=== PATIENT | male | born 1975 | race Caucasian/White ===

== ENCOUNTER 2018-03-16 14:34 | Emergency (ER) | payer SELFPAY ==
[2018-03-16] MEDS ORDERED: Lidocaine 1% 5ml(IM or SUTURE)(PAIN CLINIC) ONE (14:44)
--- NOTE | 2018-03-16 15:08 | ED Physician Documentation ---
General Adult - HISTORIAN Historian: patient - HPI Stated Complaint: Arm Lac Chief Complaint: General Adult Onset: minutes Timing: still present Severity: mild Further Comments: yes (Pt is a 43 yo male with a small, 2.5 cm superficial laceration near his R elbow. Pt was using a brushhog when a part broke off. Tetanus is utd.) - ROS CONST: no problems EYES/ENT: none CVS/RESP: none GI/: none MS/SKIN/LYMPH: other (small R elbow laceration) - PAST HX Past History: none Other History: none Allergies/Adverse Reactions: Allergies Allergy/AdvReac Type Severity Reaction Status Date / Time acetaminophen [From Percocet] Allergy Verified 03/16/18 14:50 oxycodone [From Percocet] Allergy Verified 03/16/18 14:50 Home Medications: Ambulatory Orders Medication Instructions Recorded Lisdexamfetamine Dimesylate 1 cap PO DAILY 03/16/18 [Vyvanse] - SOCIAL HX Smoking History: non-smoker - FAMILY HX Family History: No - VITAL SIGNS Vital Signs: Vital Signs Temp Pulse Resp BP Pulse Ox 77 17 117/86 98 03/16/18 14:40 03/16/18 14:40 03/16/18 14:40 03/16/18 14:40 - REVIEWED ASSESSMENTS Nursing Assessment Reviewed: Yes Vitals Reviewed: Yes Procedures Wound Location: upper extremity (R) Wound Length: 2.5 cm Wound's Depth, Shape: superficial Wound Explored: clean Irrigated w/ Saline (ccs): 20 Betadine Prep?: No (Tom martin) Anesthesia: 1% Lidocaine Volume of Anesthetic: 3 cc Wound Debrided: minimal Wound Repaired With: sutures Suture Size/Type: 4:0, nylon Number of Sutures: 3 Layer Closure?: No Sterile Dressing Applied?: Yes Splint Applied?: No Sling Applied?: No Progress - Progress Progress: Topical abx to suture site f/u w pcp in 5-7 days for suture removal, apply topical abx bid x 5 days. ED Results Lab/Radiology - Orders Orders: ED Orders Category Date Time Status Lidocaine 1% 5ml(IM or SUTURE) [Xylocaine] Med 03/16/18 14:44 Discontinued 50 mg .ROUTE .STK-MED ONE General Adult Physical Exam - PHYSICAL EXAM GENERAL APPEARANCE: no distress NECK: normal inspection, supple RESPIRATORY: no resp distress CVS: reg rate & rhythm BACK: normal inspection SKIN: other (2.5 cm laceration R elbow) EXTREMITIES: non-tender, normal range of motion, other (2.5 cm laceration R elbow) NEURO: oriented X3, motor nml, sensation nml Discharge Clincal Impression: laceration Referrals: Stringer,DO [place] [STAFF PHYSICIAN] - Condition: Good Disposition: 01 HOME, SELF-CARE Decision to Admit: NO Decision Time: 15:08
[2018-03-16 15:39] VITALS: BP 112/64
== END 2018-03-16 15:20 | disposition home or self-care (01) ==
LOC: ED 14:34
DX: S51.011A Laceration without foreign body of right elbow, initial encounter (principal); X58.XXXA Exposure to other specified factors, initial encounter; Y92.9 Unspecified place or not applicable; Y93.H2 Activity, gardening and landscaping; Y99.9 Unspecified external cause status
CPT/HCPCS: 12001; 96372; J7030